=== PATIENT | female | born 1950 | race Caucasian/White ===

== ENCOUNTER 2018-05-14 08:56 | Outpatient (CLI) | payer MEDICARE ==
[2018-05-14 09:22] LABS: Estimated GFR-MDRD - POC Greater than 90
--- NOTE | 2018-05-14 15:18 | MRI ---
BRAIN MRI WITH AND WITHOUT CONTRAST: DATE: 05/14/18. COMPARISON: None. HISTORY: Left breast cancer, staging examination, evaluate for intracranial metastatic disease. TECHNIQUE: Multiplanar, multisequence MR imaging of the brain is obtained with and without contrast. FINDINGS: The diffusion weighted imaging demonstrates no evidence for acute infarction. There is prominent degenerative change involving the temporomandibular joints with bilateral TMJ effu sions. There is fluid partially opacifying the mastoid air cells, right more so than left. The para nasal sinuses appear grossly unremarkable. Arterial flow voids at axial level of skull base demonstrate a relatively hypoplastic basilar artery. The gradient echo imaging demonstrates no evidence for intracranial hemorrhage. Multiple scattered foci of increased T2 and FLAIR signal are noted within the periventricular deep an d subcortical white matter, evidence of small vessel disease. No ventriculomegaly, midline shift, or mass effect. Regional bone marrow signal intensity within normal limits. Postcontrast imaging demonstrates no adrianne dence for abnormal enhancement within the brain parenchyma. IMPRESSION: No MR evidence of intracranial metastatic disease. POS: [facility]
== END 2018-05-14 08:57 | disposition home or self-care (01) ==
LOC: SCSMRI 08:56
PROVIDERS: ATTEND Internal Medicine Hematology & Oncology
DX: C50.112 Malignant neoplasm of central portion of left female breast (principal)
CPT/HCPCS: 70553; 82565

== ENCOUNTER 2018-05-14 12:30 | Outpatient (CLI) | payer MEDICARE ==
--- NOTE | 2018-05-15 08:56 | PET ---
PET CT FROM SKULL BASE TO MID THIGH: INDICATION: History of breast cancer status post right mastectomy in 1995 and left mastectomy in 1996. TECHNIQUE: Multiple PET CT images were obtained after the IV administration of 11.2 mCi of F18-FDG IV. The CT i mages were obtained for attenuation correction purposes only. COMPARISON: No comparisons are available. FINDINGS: The biodistribution for the examination appears acceptable. HEAD AND NECK: No hypermetabolic lymphadenopathy or mass is identified. Dental amalgam limits evaluation of the ora l cavity. THORAX: There is postsurgical change of bilateral mastectomies. There is an area of focal subcutaneous scarr ing with mild increased FDG uptake involving the inferior lateral aspect of the left anterior chest w all, near the left mastectomy site. The peak SUV value associated with this area of scarring is 1.19 . There are surgical clips within the axillary region consistent with lymph node dissection. There is postsurgical change of a partial pneumonectomy involving the right upper lobe. A small amount of non-hypermetabolic fluid is seen within the right upper hemithorax. There is scarring within the rig ht upper hemithorax likely related to prior radiation therapy. No hypermetabolic pulmonary nodule or pleural effusion is evident. No hypermetabolic mediastinal lymph node is evident. ABDOMEN AND PELVIS: No hypermetabolic mass or lymphadenopathy is evident. No hypermetabolic ascites is demonstrated. SKIN AND OSSEOUS STRUCTURES: No hypermetabolic osseous abnormality is demonstrated. No additional abnormal skin finding is presen t. IMPRESSION: Probably normal PET scan. 1. There is a focus of mild hypermetabolic activity involving the subcutaneous tissues of the in ferior lateral left anterior chest wall near expected surgical scar for the patient's left mastectomy . This is focal and only has mild increased metabolic uptake up to 1.19 and may reflect a focal skin lesion, possibly an infectious skin lesion. Recommend correlation with clinical exam. 2. There is no overt change to suggest hypermetabolic metastatic disease. 3. Postsurgical post therapy changes to the right chest wall. POS: [facility]
== END 2018-05-14 12:31 | disposition home or self-care (01) ==
LOC: PET 12:30
PROVIDERS: ATTEND Internal Medicine Hematology & Oncology
DX: C50.919 Malignant neoplasm of unspecified site of unspecified female breast (principal); Z90.13 Acquired absence of bilateral breasts and nipples
CPT/HCPCS: 70553; 78815; 82565; A9552

== ENCOUNTER 2018-06-01 10:45 | Outpatient (CLI) | payer MEDICARE ==
[2018-06-01 14:06] LABS: Hemoglobin 12.6 g/dL (12.0-16.0); Lymphocytes 16 % (21-51); MDiff Complete? YES; Mean Corpuscular HGB CONC 33.1 g/dL (32.0-36.0); Mean Corpuscular Hemoglobin 29.4 pg (27.0-31.0); Mean Corpuscular Volume 88.8 fL (78.0-98.0); Mean Platelet Volume 6.7 fL (7.4-10.4); Monocytes 9 % (0-10); Neutrophil 75 % (42-75); PLT Morphology Comment Appears Adequate; Platelet Count 262 thou/uL (130-400); RBC Distribution Width 12.4 % (11.5-14.5); Red Blood Cell (RBC) Count 4.28 mill/uL (4.20-5.40); White Blood Cell (WBC) Count 4.9 thou/uL (4.8-10.8)
[2018-06-01 14:08] LABS: Calcium 9.5 mg/dL (7.8-10.44); Chloride 105 mmol/L (98-107); Potassium 4.3 mmol/L (3.5-5.1); Sodium 136 mmol/L (136-145)
[2018-06-01 14:18] LABS: Anion Gap 18 mmol/L (10-20); BUN (Urea Nitrogen) 13 mg/dL (9.8-20.1); Calc. Creatinine Clearance 0 mL/min (70-130); Carbon Dioxide 18 mmol/L (23-31); Estimated GFR-MDRD 85; Glucose 80 mg/dL (80-115)
--- NOTE | 2018-06-02 12:47 | EKG ---
Test Reason : Blood Pressure : / mmHG Vent. Rate : 064 BPM Atrial Rate : 064 BPM P-R Int : 188 ms QRS Dur : 074 ms QT Int : 408 ms P-R-T Axes : 060 071 071 degrees QTc Int : 420 ms Normal sinus rhythm ST elevation, consider early repolarization Borderline ECG No previous ECGs available Confirmed by JASON LOVELL ([id number]) on 06/02/2018 12:47:13 PM Referred By: DANIELA Confirmed By:JASON LOVELL
== END 2018-06-01 10:46 | disposition home or self-care (01) ==
LOC: LABBT 10:45
PROVIDERS: ATTEND Surgery
DX: Z01.818 Encounter for other preprocedural examination (principal); C49.3 Malignant neoplasm of connective and soft tissue of thorax
CPT/HCPCS: 80048; 85025; 93005; 93010

== ENCOUNTER 2018-06-04 07:33 | Day surgery (SDC) | payer MEDICARE ==
[2018-06-01 11:34] VITALS: BMI 24.0
[2018-06-04] MEDS ORDERED: CEFAZOLIN/Water 2 GM/20 ML SYRINGE ONE (11:45)
[2018-06-04] MEDS ORDERED: Bupivacaine HCl 0.25%/Epi 0.0005/PF 10 ML VIAL FS ONE (11:52)
[2018-06-04] MEDS ORDERED: Famotidine/PF 20 mg/2ml Vial ONE (12:08)
[2018-06-04] MEDS ORDERED: Fentanyl 100 MCG/2 ML VIAL ONE (12:08)
[2018-06-04] MEDS ORDERED: Bacitracin Zinc Ointment 30 gm TUBE ONE (13:07)
--- NOTE | 2018-06-04 14:24 | NM ---
LEFT BREAST LYMPHOSCINTIGRAPHY: HISTORY: Breast cancer. Status post right mastectomy in 1995 and left mastectomy in 1996. Tumor recurrence o n the left. RADIOPHARMACEUTICAL: Technetium 99 sulfur colloid 439 microcuries injected in the left anterior chest, surrounding the rec ently biopsied lesion. FINDINGS: No evidence of tracer movement or visualization of activity in the axillary, cervical, or intrathorac ic lymph nodes is seen. IMPRESSION: Nonvisualization of sentinel lymph nodes. POS: [facility]
[2018-06-04] MEDS ORDERED: Ondansetron HCl/PF 4 MG/2 ML Vial ONE (15:00)
[2018-06-04] MEDS ORDERED: ePHEDrine/0.9% NaCl/PF SYRINGE 50 mg/10 ml ONE (15:00)
[2018-06-04] MEDS ORDERED: Lidocaine 1% PF 5 ML VIAL ONE (15:00)
[2018-06-04] MEDS ORDERED: PHENYLEPHRINE-NS 100 MCG/ML 10 ML SYRINGE ONE (15:00)
[2018-06-04] MEDS ORDERED: Dexamethasone 20 MG/5 ML VIAL ONE (15:00)
[2018-06-04] MEDS ORDERED: Ketorolac Tromethamine 30 MG/ML VIAL ONE (15:00)
[2018-06-04] MEDS ORDERED: PROPOFOL 200 MG/20 ML VIAL ONE (15:00)
[2018-06-05] MEDS ORDERED: Heparin 0 ML ONE (06:43)
[2018-06-05] MEDS ORDERED: Lidocaine 1% (PF) 30 ML VIAL ONE (06:43)
--- NOTE | 2018-06-10 14:35 | PDOC.OP ---
Operative Note - Operative Note Operative Note: PROCEDURE: Wide local excision of breast cancer left chest wall. DATE OF PROCEDURE: 06/04/2018 SURGEON: Holli Tipton M.D. PREOPERATIVE DIAGNOSES: Breast cancer left chest wall POSTOPERATIVE DIAGNOSIS: Breast cancer left chest wall HISTORY: Patient with a history of right breast cancer status post modified radical mastectomy several decades ago. She underwent a left mastectomy for benign disease not long after that. Recently she noted a skin lesion on her left chest wall at the mastectomy incision and a biopsy came back consistent with adenocarcinoma of breast origin. It is not clear whether this is a second primary lesion arising from residual breast tissue or a metastatic lesion. Recommendation was made to proceed with attempted sentinel lymph node biopsy and wide local excision of the left chest wall lesion which on CT appeared to be extending down to the pectoralis muscle. Preoperative lymphoscintigraphy showed no uptake in axillary or chest lymph nodes, with the radioactive isotope remaining solely in the chest wall at the injection site, so sentinel lymph node biopsy was not done. Axillary dissection had been discussed with the patient that not recommended due to a clinically negative axilla. PROCEDURE IN DETAIL: After informed consent was obtained the patient was taken to the operating room she was placed in supine position and anesthesia was administered. She was prepped and draped in standard sterile fashion and a transverse elliptical incision marked with 1 cm margins superior and inferior to the edges of the skin lesion. The patient was noted to have some slightly nodular tissue medial to the skin lesion so the inferior margin was slightly more generous in that area. Dissection was carried down to the chest wall circumferentially and the specimen excised with the underlying pectoralis muscle using electrocautery. The specimen was oriented with a long lateral and short superior suture and passed from the field. The wound was irrigated and hemostasis verified. The skin and subcutaneous tissues were elevated off of the underlying chest wall using electrocautery to allow tension-free primary closure. This required about 5 cm of undermining superiorly and inferiorly. The wound was then closed with interrupted [id number] deep dermal and subcutaneous tissues and a running vertical mattress skin suture. A sterile dressing was applied and the patient was taken to recovery in good condition. Estimated blood loss was minimal. There are no complications. Specimen is left chest wall mass.
== END 2018-06-04 15:52 | disposition home or self-care (01) ==
LOC: SDC 07:33
PROVIDERS: ATTEND Surgery
PROC: 0HBU0ZZ Excision of Left Breast, Open Approach (ICD-10-PCS; principal; 2018-06-04)
DX: C50.812 Malignant neoplasm of overlapping sites of left female breast (principal); M79.7 Fibromyalgia; E78.2 Mixed hyperlipidemia; E78.00 Pure hypercholesterolemia, unspecified; M81.0 Age-related osteoporosis without current pathological fracture; M19.90 Unspecified osteoarthritis, unspecified site; Z17.0 Estrogen receptor positive status [ER+]; Z88.2 Allergy status to sulfonamides; Z79.899 Other long term (current) drug therapy; Z79.82 Long term (current) use of aspirin
CPT/HCPCS: 19301; 78195; 88307; 88341; 88342; A9541; J0131; J1100; J1644; J1885; J2001; J2405; J2704; J3010; S0028

== ENCOUNTER 2018-09-14 09:22 | Outpatient (CLI) | payer MEDICARE ==
--- NOTE | 2018-09-14 11:50 | BD ---
DEXA BONE DENSITY STUDY: HISTORY: A 67-year-old female for screening, malignant neoplasm of the central portion of the left female [facility]. Lumbar Spine: BMD (g/cm2) L1 0.845 T-Score: -1.3 L2 0.831 T-Score: -1.8 L3 0.824 T-Score: -2.4 L4 0.866 T-Score: -1.8 L1-L4 0.843 T-Score: -1.9 Evidence for osteopenia with increased risk for fracture, bone mineral density has increased 2% from prior 12/02/2016. Femoral Neck: 0.612 T-Score: -2.1 Total Femur: 0.790 T-Score: -1.2 Evidence for osteopenia with increased risk for fracture, bone mineral density has decreased 0.1% fro m 12/02/2016. FRAX score: Major osteoporotic fracture 11%. Hip fracture 1.9%. POS: [facility]
== END 2018-09-14 09:23 | disposition home or self-care (01) ==
LOC: BICMAMMO 09:22
PROVIDERS: ATTEND Internal Medicine Hematology & Oncology
DX: C50.112 Malignant neoplasm of central portion of left female breast (principal); N95.9 Unspecified menopausal and perimenopausal disorder; M85.89 Other specified disorders of bone density and structure, multiple sites
CPT/HCPCS: 77080

== ENCOUNTER 2024-10-01 10:15 | Outpatient (CLI) | payer MEDICARE | END 2024-10-01 10:16 | disposition home or self-care (01) | LOC: PET 10:15 | PROVIDERS: ATTEND Internal Medicine Hematology & Oncology | DX: C50.112 Malignant neoplasm of central portion of left female breast (principal); C79.51 Secondary malignant neoplasm of bone | CPT/HCPCS: 78815; A9552 ==